=== PATIENT | female | born 1985 | race Caucasian/White ===

== ENCOUNTER 2023-04-29 17:16 | Emergency (ER) | payer BC, SELFPAY ==
--- NOTE | ~2023-04-29 | CT_ITS ---
EXAMINATION: CT abdomen pelvis w con DATE: 04/29/2023 20:59 INDICATION: RUQ pain TECHNIQUE: Computed tomography (CT) of the abdomen and pelvis was performed with 100 mL Omnipaque-350 intravenous contrast. Automated exposure control and iterative reconstruction technique were employe d. The dose-length product was 741.72 mGy-cm. COMPARISON: None. FINDINGS: Lower thorax: Unremarkable Liver: Subcentimeter hypodensities, likely small cysts or hemangiomas. Enlarged. Biliary/Gallbladder: The gallbladder is partially contracted No bile duct dilation. Pancreas: No mass or duct dilation. Spleen: Normal. Adrenals:No mass. Kidneys: No suspicious mass, obstructing stone, or hydronephrosis. GI tract: No small or large bowel dilation. Normal appendix. Mesentery/Peritoneum: No ascites, mass, or free air. Retroperitoneum: No mass. Pelvis: Pelvic organs are within normal limits. Soft Tissues: Soft tissues and body wall unremarkable. Bones: No acute osseous finding. IMPRESSION: No acute abdominopelvic process detected. Reviewed, dictated and finalized at location K. ERIN OPERATOR
[2023-04-29 17:32] VITALS: BP 136/108; PULSE 98; RESP 18; TEMP 36.1; O2SAT 100
--- NOTE | 2023-04-29 19:00 | ED.ABDPAIN ---
HPI - Abdominal Pain General Chief Complaint: Abdominal Pain Stated Complaint: Gallbladder issues Time Seen by Provider: 04/29/23 18:52 Source: patient Mode of arrival: ambulatory Limitations: no limitations History of Present Illness HPI narrative: This is a 37 year old female that presents to the ER for epigastric pain today. Reports she had eaten boneless wings and tater tots. Reports associated nausea and diarrhea. She took tums with some relief. Reports she is concerned she has been having issues with her gallbladder. She has had similar episodes over the last couple of years. Reports worsening recently. She has not been evaluated for this yet. Denies fevers or vomiting. Related Data Allergies Allergy/AdvReac Type Severity Reaction Status Date / Time naproxen Allergy Anaphylaxis Verified 04/29/23 17:17 Review of Systems Review of Systems: CONSTITUTIONAL: Denies fever GASTROINTESTINAL: Reports abdominal pain, nausea, and diarrhea. GENITOURINARY: Denies dysuria All systems reviewed & are unremarkable except as noted in HPI and below PMFSH Past Medical History Medical History (Updated 04/29/23 @ 21:44 by Kendra Nieves PA-C) No active medical problems Social History Social History (Updated 04/29/23 @ 19:06 by Kendra Nieves PA-C) Alcohol intake: current Exam Narrative: GENERAL: Well-appearing, well-nourished, and in no acute distress. HEAD: Normocephalic, atraumatic. EYES: EOMI. CHEST: Clear to auscultation. No respiratory distress. No wheezes rales or rhonchi HEART: Regular rate and rhythm. No murmur heard. Normal peripheral pulses. ABDOMEN: Soft, nondistended, normal active bowel sounds. Mild tenderness to palpation in the RUQ, without guarding EXTREMITIES: Normal range of motion. No edema. SKIN: Warm, dry, no rash. NEURO: No focal deficits. Alert and oriented x3. PSYCH: Normal mood and affect Course Course Emergency Course: Patient updated on workup and agrees with plan of care Vital Signs Vital signs: Vital Signs Temperature 97.0 F L 04/29/23 17:32 Pulse Rate 98 04/29/23 17:32 Respiratory Rate 18 04/29/23 17:32 Blood Pressure 136/108 H 04/29/23 17:32 Pulse Oximetry 100 04/29/23 17:32 Oxygen Delivery Room Air 04/29/23 17:32 Temperature 97.0 F L 04/29/23 17:32 Pulse Rate 100 04/29/23 19:49 Respiratory Rate 14 04/29/23 19:49 Blood Pressure 113/98 H 04/29/23 19:49 Pulse Oximetry 100 04/29/23 19:49 Oxygen Delivery Room Air 04/29/23 17:32 MDM - Abdominal Pain MDM Narrative Medical decision making narrative: Patient presents to the emergency department for epigastric pain and nausea. Reports history of previous similar episodes. Was concerned about her gallbladder. She is afebrile and nontoxic appearing. Her vitals are stable. CBC with mild leukocytosis to 11.3. Metabolic panel and lipase without concerning findings. UA without evidence of infection. test is negative. CT abdomen and pelvis without acute findings. COVID test positive, patient did report she was positive two weeks ago likely residual. Patient updated on her workup. Reports improvement after Pepcid. She is to follow up with PCP. She was given warnings to return to the ER Differential Diagnosis Differential diagnosis: Likely gastroenteritis, pancreatitis and other (GERD, biliary colic) Lab Data Attestation: I reviewed the patient's lab results. 04/29/23 19:28 04/29/23 19:28 Labs: Lab Results 04/29/23 04/29/23 Range/Units 19:28 19:32 WBC 11.3 H (4.5-10.0) K/mm3 RBC 4.84 (4.2-5.4) M/mm3 Hgb 13.1 (12.0-15.0) g/dL Hct 40.7 (37.0-47.0) % MCV 84.1 (80-100) fl MCH 27.1 (26-34) pg MCHC 32.2 (32-36) g/dl RDW 12.6 (11.5-14.5) % Plt Count 352 (150-375) k/mm3 MPV 11.0 H (7.4-10.4) fl Immature Gran % (Auto) 0.4 (0-0.5) % Neut % (Auto) 65.1 (45.5-73.1) % Lymph % (Auto) 25.1 (18.3-44.2)
[2023-04-29 19:36] LABS: Basophils Absolute Auto 0.1 K/mm3 (0.0-0.1); Basophils Percent Auto 0.7 % (0.2-1.2); Eosinophils Absolute Auto 0.3 K/mm3 (0-0.3); Hematocrit 40.7 % (37.0-47.0); Hemoglobin 13.1 g/dL (12.0-15.0); Immature Granulocyte Absolute 0.04 K/mm3 (0.00-0.031); Immature Granulocyte Percent A 0.4 % (0-0.5); Lymphocytes Absolute Auto 2.83 K/mm3 (0.9-3.2); Lymphocytes Percent Auto 25.1 % (18.3-44.2); Mean Corpuscular HGB Conc 32.2 g/dl (32-36); Mean Corpuscular Hemoglobin 27.1 pg (26-34); Mean Corpuscular Volume 84.1 fl (80-100); Monocytes Absolute Auto 0.6 K/mm3 (0.1-0.6); Monocytes Percent Auto 5.7 % (2.6-8.5); Neutrophils Absolute Auto 7.3 K/mm3 (1.3-6.7); Neutrophils Percent Auto 65.1 % (45.5-73.1); Platelet Count Result 352 k/mm3 (150-375); Red Blood Count 4.84 M/mm3 (4.2-5.4); Red Cell Distribution Width 12.6 % (11.5-14.5); White Blood Count 11.3 K/mm3 (4.5-10.0)
[2023-04-29 19:42] LABS: Appearance Urine Turbid (Clear); Bacteria Urine None Seen /hpf; Bilirubin Urine Negative (Negative); Blood Urine Negative (Negative); Color Urine Yellow (Yellow); Glucose Urine UA Negative (Negative); Ketones Urine Negative (Negative); Leukocyte Esterase Ur Trace LEU/UL (Negative); Nitrate Urine Negative (Negative); Non Pathogenic Casts 0-2; Protein Urine Negative (Negative); Specific Grav Ur 1.019 (1.001-1.035); Squamous Epithelial Cell Urine Occasional /hpf (Few); Urobilinogen Urine 0.2 mg/dL (<2.0); WBC Urine 0-5 /hpf
[2023-04-29 19:45] LABS: Add Urine Microscopic? YES
[2023-04-29 19:49] VITALS: BP 113/98; PULSE 100; RESP 14; O2SAT 100
[2023-04-29 19:50] LABS: Alanine Aminotransferase 19 U/L (6-35); Albumin Level 4.4 g/dL (3.5-5.1); Alkaline Phosphatase 82 U/L (38-126); Anion Gap 5 mmol/L (8-16); Aspartate Amino Transferase 25 U/L (14-36); Bilirubin,Total 0.4 mg/dL (0.2-1.3); Blood Urea Nitrogen 11 mg/dL (7-17); Calcium 9.7 mg/dL (8.4-10.2); Carbon Dioxide 31 mmol/L (22-30); Chloride 102 mmol/L (98-107); Estimated Glomerular Filt Rate > 60; Glucose 103 mg/dL (65-110); Lipase 108 U/L (23-300); Potassium 3.8 mmol/L (3.4-5.0); Sodium 138 mmol/L (137-145)
[2023-04-29 20:22] LABS: Influenza A QL RT-PCR Negative (Negative); Influenza B QL RT-PCR Negative (Negative); SARS-CoV-2 RNA PCR Positive (Negative)
[2023-04-29 20:30] VITALS: BP 120/87; PULSE 88; RESP 14; O2SAT 100
[2023-04-29 20:42] LABS: Pregnancy On Board Control Positive; Urine Pregnancy Test Negative
== END 2023-04-29 21:50 | disposition home or self-care (01) ==
PROVIDERS: Emergency Provider Physician Assistant; PCP Physician Assistant
DX: R10.11 Right upper quadrant pain (principal); U07.1 COVID-19
CPT/HCPCS: 36415; 74177; 80053; 81001; 81025; 83690; 85025; 87636; 99284; Q9967

== ENCOUNTER 2024-11-27 16:04 | Emergency (ER) | payer OTHER, BC, SELFPAY ==
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
--- OUTSIDE RECORDS SUMMARY | 2024-11-27 16:06 | XMS_ITS | Encounter Summary ---
Author Organization [facility] Healthcare Address [address] [place] [address] Care Team Providers Care Windsurfing Instructor Name Role Phone Mailereji Darlene VUONG Primary Care Pr ovider Encounter Details Date Type Department Care Team (Late st Contact Info) Description 11/20/2024 Results Follow-Up [facility] [address] [address] Hugo Love MD [address] [address] Pap and HPV, reflex to HPV Genotypes Social History Tobacco Use Types Packs/Day Years Used Date Smoking Tobacco: Never Smokeless Tobacco: Never AUDIT-C Answer Date Recorded Q1: How often do you have a drink containing alc ohol? Never 06/23/2022 Average Number of Drinks Not on file 023 Frequency of Binge Drinking Not on file 06/01 Overall Financial Resource Strain (CARDIA) Answe r Date Recorded How hard is it for you to pa y for the very basics like food, housing, medical care, and heating? Not hard at all 06/23/2022 PHQ-2 Answer Date Recorded PHQ-2 Total Score (If total score is 3 or more points, staff should administer the PHQ-9) 0 06/23/2022 [facility] [place] of Occupat ional Health - Occupational Stress Questionnaire Answer Date Recorded Do you feel stress - tense, restless, nervous, or anxious, or unable to sleep at night because your mind is troubled all the time - these days? Not at all 06/23/2022 Hunger Vital Sign Answer Date Recorded Within the past 12 months, y ou worried that your food would run out before you got the money to buy more. Never true 06/23/19 23 Within the past 12 months, t he food you bought just didn't last and you didn't have money to get more. Never true 06/23/2022 PRAPARE - Transportation Answer Date Re corded In the past 12 months, has l ack of transportation kept you from medical appointments or from getting medications? No 06/01 In the past 12 months, has l ack of transportation kept you from meetings, work, or from getting things needed for daily living? No 06/23/2022 Housing Stability Vital Sign Answer Benji e Recorded In the last 12 months, was t here a time when you were not able to pay the mortgage or rent on time? No 06/23/2022 Number of Places Lived in the Last Year Not on f ile 06/23/2022 In the last 12 months, was t here a time when you did not have a steady place to sleep or slept in a assisted (including now)? No 06/23/2022 [place] Depression Scale Answer Date Recorded [place] Depression Scale Total 3 10/10/2022 The thought of harming myself has occurred to me . Never 10/10/2022 Personal Safety Answer Date Recorded Have you ever been in or are you currently in a harmful physical or emotional relationship or is someone making you feel afraid or unsafe? Denies 03/24/2024 Comments No Sex and Gender Information Value Date Recorded Sex Assigned at Not on file Legal Sex Female 9:47 PM HI RANGER OPERATOR Gender Identity Female 01/27/2022 8:36 PM CDT Sexual Orientation Not on file documented as of this encounter Miscellaneous Notes * Result Encounter Note - Hugo Love MD - 11/20/2024 7:42 AM CDT Nelda Your Pap smear results are normal. Please message me back and let me know that she got this and that the my chart system is working. If he have any questions about the results, please call the office. Dr. Love documented in this encounter Plan of Treatment Not on file documented as of this encounter Visit Diagnoses Not on filedocumented in this encounter Care Teams Windsurfing Instructor Relationship Specialty Start Date End Date Darlene Gresham PA [address] [place] [address] PCP - General Physician Hedge Fund Accountant 08/16/23 documented as of this encounter
--- OUTSIDE RECORDS SUMMARY | 2024-11-27 16:06 | XMS_ITS | Referral Summary ---
Author Organization [facility] C Address [address] [place] [address] Care Team Providers Care Coal Cutter Name Role Phone KitaJohny membrenomorena VUONG Primary Care Pr ovider Encounters Date Type Department Care Team Description 11/20/2024 Results Follow-Up [facility] [address] [address] Hugo Love MD Pap and HPV, reflex to HPV Genotypes 11/14/2024 11:45 AM CDT Office Visit [address] [address] Hugo Love MD Routine gynecological examination (Primary Dx); Screening for cervical cancer from Last 3 Months Allergies Active Allergy Reactions Criticality Noted Date Comments Naproxen Other (See comments) Low 02/24/2023 Medications levonorgestreL (MIRENA) IUD 1 each by intrauterine route once [facility] 84933-817-26 LOT#[id number] EXPIRES 07/2025 4 032 Active Wegovy 2.4 mg/0.75 mL auto-injector ADMINISTER 2.4 MG UNDER THE SKIN 1 TIME A WEEK 5 Active hydrocortisone (ANUSOL-HC) 2.5 % rectal cream Insert into the rectum 2 (two) times a day 30 g 4 025 Discontin ued(Thera py completed ) phentermine (ADIPEX-P) 37.5 mg tablet Take 1 tablet (37.5 mg total) by mouth daily 4 025 Discontin ued(Thera py completed ) escitalopram (LEXAPRO) 5 mg tablet Take 1 tablet (5 mg total) by mouth daily 4 025 Discontin ued(Thera py completed ) Zepbound 2.5 mg/0.5 mL pen injector ADMINISTER 2.5 MG UNDER THE SKIN EVERY WEEK 4 025 Discontin ued(Thera py completed ) metoclopramide (REGLAN) 5 mg tablet Take 1 tablet (5 mg total) by mouth every 6 (six) hours as needed (nausea/vomiting ) 20 tablet 4 025 Discontin ued(Thera py completed ) Active Problems Problem Noted Date Diagnosed Date 39 weeks gestation of 09/26/2022 Depressive disorder 12/23/2018 Overview (07/17/2023): Major depressive disorder, single episode, unspecified;Practice ID: [id number] Obesity with body mass index 30 or greater 07/01 Overview (07/17/2023): Body mass index (BMI) 32.0-32.9, adult;Recorded Elsewhere: No Location: [facility] Source: EHR Chronic: N Practice ID: [id number] Billable Time: 09:30:00 AM Atypical glandular cells on cervical Pap smear 0 12/01/2014 Overview (07/17/2023): Abnormal glandular Papanicolaou smear of cervix;Recorded Elsewhere: No Location: [facility] Source: EHR Chronic: N Practice ID: [id number] Billable Time: 11:30:00 AM Ill-defined intestinal infection 01/28/2013 Cervical intraepithelial neoplasia grade 1 11/26 Overview (07/17/2023): Mild dysplasia of cervix;Recorded Elsewhere: No Location: [facility] Source: EHR Chronic: N Practice ID: [id number] Billable Time: 10:00:00 AM Immunizations Immunization Administration Dates Next Due Influenza, Quadrivalent, Spl it, Preservative Free, Intramuscular 03/21/2022 Tdap 07/25/2022 Social History Tobacco Use Types Packs/Day Years Used Date Smoking Tobacco: Never Smokeless Tobacco: Never Tobacco Cessation:Counseling Given: Not Answered AUDIT-C Answer Date Recorded Q1: How often [...] staff should administer the PHQ-9) 0 06/23/2022 [facility] of Occupat ional Health - Occupational Stress [...] place to sleep or slept in a prison (including now)? No 06/23/2022 [place] Depression Scale Answer Date Recorded [place] Depression Scale Total 3 10/10/2022 The thought [...] on file Legal Sex Female 9:47 PM OIL REFINERY PROCESS TECHNICIAN Gender Identity Female 01/27/2022 8:36 PM CDT Sexual Orientation Not on file Last Filed Vital Signs Vital Sign Reading Time Taken Comments Blood Pressure 121/74 11/14/2024 11:43 AM CDT Pulse 88 03/24/2024 11:53 PM OIL REFINERY PROCESS TECHNICIAN Temperature 36.9 C (98.4 F) 03/24/2024 8:37 PM OIL REFINERY PROCESS TECHNICIAN Respiratory Rate 18 03/24/2024 11:53 PM OIL REFINERY PROCESS TECHNICIAN Oxygen Saturation 98% 03/24/2024 11:53 PM OIL REFINERY PROCESS TECHNICIAN Inhaled Oxygen Concentration - - Weight 88.9 kg (196 lb) 11/14/2024 11:43 AM CDT Height 170.2 cm (5' 7.01) 11/14/2024 11:43 AM C DT Body Mass Index 30.69 11/14/2024 11:43 AM CDT Plan of Treatment Not on file Procedures Procedure Name Priority Date/Time Associated Diagnosis Comments PAP AND HPV, REFLEX TO HPV GENOTYPES Routine 11/14/2024 12:00 PM CDT Screening for cervical cancer HEPATITIS C ANTIBODY Routine 03/21/2022 11:47 AM OIL REFINERY PROCESS TECHNICIAN Encounter for supervision of normal first in first trimester from Last 3 Months or Most Recently Relevant to Health Maintenance Results * Pap and HPV, reflex to HPV Genotypes (11/14/2024 12:00 PM CDT) Clinical indication Comment [facility] - 01 Comment:NEGATIVE FOR INTRAEP ITHELIAL LESION OR MALIGNANCY. Specimen adequacy: Comment [facility] - 01 Comment: Satisfactory for evaluation. Endocervical and/or squamous metaplastic cells (endocervical component) are present. Clinician provided ICD10 Comment [facility] 02 Comment:Z12.4 Performed by Comment [facility] - 01 Comment:Denisha Medina, Cyto logist (ASCP) . . [facility] - 01 Note: Comment [facility] 02 Comment: The Pap smear is a screening test designed to aid in the detection of premalignant and malignant conditions of the uterine cervix. It is not a diagnostic procedure and should not be used as the sole means of detecting cervical cancer. Both false-positive and false-negative reports do occur. Test methodology Comment [facility] 02 Comment: This liquid based ThinPrep(R) pap test was screened with the use of an image guided system. HPV Aptima Negative Negative [facility] 03 Comment: This nucleic acid amplification test detects fourteen high-risk HPV types (16,18,31,33,35,39,45,51,52,56,58,59,66,68) without differentiation. HPV Genotype Reflex Comment [facility] - Comment:Criteria not met, HP V Genotype not performed. Thin prep-Endocervical 11/14/2024 12:00 PM CDT 11/14/2024 Narrative [facility] - 11/19/2024 5:09 PM CDT [facility] [id number] [place] [id number] Customer Operations Specialist: Jimmy Tovar MD, Phone: [phone] Performed at: - Lab[address] [id number] Customer Operations Specialist: Lakisha Carreon MD, Phone: [phone] Performed at: 03 - Lab[address] [id number] Customer Operations Specialist: Lakisha Carreon MD, Phone: [phone] Specimen Comment: [id number] Specimen Comment: No. of containers..01 ThinPrep Vial us Hugo Love MD LAB CYTOLOGY ORDERABLES Final Result [facility] - 01 [facility] 02 [facility] 03 * Hepatitis C antibody (03/21/2022 11:47 AM OIL REFINERY PROCESS TECHNICIAN) Hep C Ab <0.1 0.0 - 0.9 s/co ratio [facility] - 01 Comment: Negative: < 0.8 Indeterminate: 0.8 - 0.9 Positive: > 0.9 HCV antibody alone does not differentiate between previous resolved infection and active infection. The CDC and current clinical guidelines recommend that a positive HCV antibody result be followed up with an HCV RNA test to support the diagnosis of acute HCV infection. [facility] Virus (HCV) RNA, Diagnosis, MICHAEL (404185) and Hepatitis C Virus (HCV) Antibody with reflex to Quantitative Real-time PCR ([id number]). Blood 03/21/2022 11:4 7 AM OIL REFINERY PROCESS TECHNICIAN 03/21/2022 Comment:KAMAR Jewell [facility] - 03/22/2022 8:17 AM OIL REFINERY PROCESS TECHNICIAN Performed at: [address] [id number] Customer Operations Specialist: Neri Demarco PhD, Phone: [phone] us Hugo Love MD LAB MICROBIOLOGY - GENERAL ORD ERABLES Final Result [facility] - from Last 3 Months or Most Recently Relevant to Health Maintenance Insurance [facility] CHOICE OOS ANTHEM ACCESS BLUE ACC CHOICE OOS Advance Directives For more information, please contact: [phone] * Full Code (Latest Code Status on File) Date Activated Date Inactivated Comments 09/27/2022 3:34 PM 09/29/2022 2:32 PM * Full Code Date Activated Date Inactivated Comments 09/26/2022 6:57 PM 09/27/2022 3:34 PM Full CPR in case of cardiopulmonary arrest Care Teams Coal Cutter Relationship Specialty Start Date End Date Darlene Gresham PA [address] [place] [address] PCP - General Physician Preparer Making Department 08/16/23
--- OUTSIDE RECORDS SUMMARY | 2024-11-27 16:06 | XMS_ITS | Clinical Summary ---
Author Organization [facility] C Address [address] [facility] [place] [address] Care Team Providers Care Medical Billing Supervisor Name Role Phone Darlene Gresham Primary Care Pr ovider Allergies Active Allergy Reactions Criticality Noted Date Comments Naproxen Other (See comments) Low 02/24/2023 Medications levonorgestreL (MIRENA) IUD 1 each by intrauterine route once [facility][NOTE 2] 81759-567-91 LOT#[id number] EXPIRES 07/2025 4 032 Active Wegovy 2.4 [...] index (BMI) 32.0-32.9, adult;Recorded Elsewhere: No Location: [facility] Source: EHR Chronic: N Practice ID: [id number] Billable Time: 09:30:00 AM Atypical glandular cells on cervical Pap smear 0 12/01/2014 Overview (07/17/2023): Abnormal glandular Papanicolaou smear of cervix;Recorded Elsewhere: No Location: [facility] Source: EHR Chronic: N Practice ID: [id number] Billable Time: 11:30:00 AM Ill-defined intestinal infection 01/28/2013 Cervical intraepithelial neoplasia grade 1 11/26 Overview (07/17/2023): Mild dysplasia of cervix;Recorded Elsewhere: No Location: [facility] Source: EHR Chronic: N Practice ID: [id number] Billable Time: 10:00:00 AM Encounters Date Type Department Care Team Description 11/20/2024 Results Follow-Up [address] [address] Hugo Love MD Pap and HPV, reflex to HPV Genotypes 11/14/2024 11:45 AM CDT Office Visit [address] [phone] Hugo Love MD Routine gynecological examination (Primary Dx); Screening for cervical cancer from Last 3 Months Immunizations Immunization Administration Dates Next Due Influenza, Quadrivalent, Spl it, Preservative Free, Intramuscular 03/21/2022 Tdap 07/25/2022 Surgical History Surgery Date Site/Laterality Comments ARM SURGERY 04/30/1998 - 04/29/1999 CERVICAL BIOPSY W/ LOOP ELEC TRODE EXCISION Medical History Medical History Date Comments Anxiety Depression Abnormal Pap smear of cervix Social History Tobacco Use Types Packs/Day Years [...] staff should administer the PHQ-9) 0 06/23/2022 [facility] [place] of Occupat ional Health - Occupational Stress [...] place to sleep or slept in a long-term (including now)? 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 Gender Identity Female 01/27/2022 8:36 PM CDT Sexual Orientation Not on file Obstetrics History Para Term AB IAB SAB Ectopic Multiple Livin g Live Births 1 1 1 0 0 0 1 1 Date Outcome GA Total Labor Labor/2nd/3rd Weight Sex Type Anes PTL Mimi A1 A5 Name Clin 2022 Term 39w 1d 1h 06m 1h 03m/0h 03m 3.485 kg (7 lb 10.9 oz) F Vagina l Epidur al N Livin g 8 9 DAINA MERCADO Mark J., MD Delivery Location:This [facility] ([facility]) Last Filed Vital Signs Vital Sign Reading Time Taken Comments Blood Pressure 121/74 11/14/2024 11:43 AM CDT Pulse 88 03/24/2024 11:53 PM FIELD HORTICULTURAL SPECIALTY GROWER Temperature 36.9 C (98.4 F) 03/24/2024 8:37 PM FIELD HORTICULTURAL SPECIALTY GROWER Respiratory Rate 18 03/24/2024 11:53 PM FIELD HORTICULTURAL SPECIALTY GROWER Oxygen Saturation 98% 03/24/2024 11:53 PM FIELD HORTICULTURAL SPECIALTY GROWER Inhaled Oxygen Concentration - - Weight 88.9 kg (196 lb) 11/14/2024 11:43 AM CDT Height 170.2 cm (5' 7.01) 11/14/2024 11:43 AM C DT Body Mass Index 30.69 11/14/2024 11:43 AM CDT Plan of Treatment Health Maintenance Due Date Last Done Comments Varicella Vaccines (1 of 2 - 13+ 2-dose series) 07/17/1999 Hepatitis B Screening 2004 HPV Vaccines (1 - 3-dose SCD M series) 2013 Depression Screening 10/11/2023 10/10/2022, 06/23/2022, 06/23/2022 Covid-19 Vaccine (3 - 2023-2 5 season) 2023 03/27/2021, 11/06/2020 Influenza Vaccine (#1) 2024 03/21/2022 Cervical Cancer Screening 11/14/20252024, 11/12/2023, 10/25/2022 Regular Well Visit/Exam 18-64 11/14/2025, 11/12/2023 DTaP/Tdap/Td Vaccine (3 - Td or Tdap) 07/25/2032 07/25/2022, 05/14/2012 Hepatitis C Screening Completed 03/21/2022 Pneumococcal vaccine <65 Aged Out No longer eligible based on patient's age to complete this topic Procedures Procedure Name Priority Date/Time Associated Diagnosis Comments PAP AND HPV, REFLEX TO HPV GENOTYPES Routine 11/14/2024 12:00 PM CDT Screening for cervical cancer HEPATITIS C ANTIBODY Routine 03/21/2022 11:47 AM FIELD HORTICULTURAL SPECIALTY GROWER Encounter for supervision of normal first in [...] differentiation. HPV Genotype Reflex Comment [facility] - 01 Comment:Criteria not met, HP V Genotype not performed. Thin prep-Endocervical 11/14/2024 12:00 PM CDT 11/14/2024 Narrative [facility] - 11/19/2024 5:09 PM CDT [facility] [address] [place] [id number] Bill Adjuster: Jimmy Tovar MD, Phone: [phone] Performed at: - Lab[address] [id number] Bill Adjuster: Lakisha Carreon MD, Phone: [phone] Performed at: 03 - Lab[address] [id number] Bill Adjuster: Lakisha Carreon MD, Phone: [phone] Specimen Comment: [id number] Specimen Comment: No. of containers..01 ThinPrep Vial Hugo Love MD LAB CYTOLOGY ORDERABLES Final Result [facility] - 01 [facility] 02 [facility] 03 * Hepatitis C antibody (03/21/2022 11:47 AM FIELD HORTICULTURAL SPECIALTY GROWER) Hep C Ab <0.1 0.0 - 0.9 s/co ratio [facility] - Comment: Negative: < 0.8 Indeterminate: 0.8 - 0.9 Positive: > 0.9 HCV antibody alone does not differentiate between previous resolved infection and active infection. The CDC and current clinical guidelines recommend that a positive HCV antibody result be followed up with an HCV RNA test to support the diagnosis of acute HCV infection. [facility] Hepatitis C Virus (HCV) RNA, Diagnosis, MICHAEL ([id number]) and Hepatitis C Virus (HCV) Antibody with reflex to Quantitative Real-time PCR ([id number]). Blood 03/21/2022 11:4 7 AM FIELD HORTICULTURAL SPECIALTY GROWER 03/21/2022 Comment:KAMAR Narrative [facility] - 03/22/2022 8:17 AM FIELD HORTICULTURAL SPECIALTY GROWER Performed at: - Lab[address] [id number] Bill Adjuster: Neri Demarco PhD, Phone: [phone] us Hugo Love MD LAB MICROBIOLOGY - GENERAL ORD ERABLES Final Result [facility] - from Last 3 Months or Most Recently Relevant to Health Maintenance Insurance BLUE [employer] CHOICE OOS ANTH ACCESS BLUE ACC CHOICE OOS Advance Directives For more information, please contact: [phone] * Full Code (Latest Code Status on File) Date Activated Date Inactivated Comments 09/27/2022 3:34 PM 09/29/2022 2:32 PM * Full Code Date Activated Date Inactivated Comments 09/26/2022 6:57 PM 09/27/2022 3:34 PM Full CPR in case of cardiopulmonary arrest Care Teams Medical Billing Supervisor Relationship Specialty Start Date End Date Darlene Gresham PA [address] [place] [address] PCP - General Physician Assembler Fluorescent Lights 08/16/23
[2024-11-27 16:15] VITALS: BP 148/99; PULSE 95; RESP 16; TEMP 36.6; O2SAT 100
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
--- OUTSIDE RECORDS SUMMARY | 2024-11-27 17:44 | XMS_ITS | Clinical Summary ---
Author Organization [facility] C Address [address] [place] [address] Care Team Providers Care Supervisor Paper Products Name Role Phone Darlene Gresham Primary Care Pr ovider Allergies Active Allergy Reactions Criticality Noted Date Comments Naproxen Other (See comments) Low 02/24/2023 Medications levonorgestreL (MIRENA) IUD 1 each by intrauterine route once [facility] 91741-814-93 LOT#[id number] EXPIRES 07/2025 4 032 Active Wegovy 2.4 [...] index (BMI) 32.0-32.9, adult;Recorded Elsewhere: No Location: [facility] Source: EHR Chronic: N Practice ID: [id number] Billable Time: 09:30:00 AM Atypical glandular cells on cervical Pap smear 0 12/01/2014 Overview (07/17/2023): Abnormal glandular Papanicolaou smear of cervix;Recorded Elsewhere: No Location: [facility] Source: EHR Chronic: N Practice ID: [id number] Billable Time: 11:30:00 AM Ill-defined intestinal infection 01/28/2013 Cervical intraepithelial neoplasia grade 1 11/26 Overview (07/17/2023): Mild dysplasia of cervix;Recorded Elsewhere: No Location: [facility] Source: EHR Chronic: N Practice ID: [id number] Billable Time: 10:00:00 AM Encounters Date Type Department Care Team Description 11/20/2024 Results Follow-Up [address] [address] Hugo Love MD Pap and HPV, reflex to HPV Genotypes 11/14/2024 11:45 AM CDT Office Visit [address] [id number] Hugo Love MD Routine gynecological examination (Primary [...] staff should administer the PHQ-9) 0 06/23/2022 [facility] [place] of Occupat ional Health - Occupational Stress [...] place to sleep or slept in a half-way (including now)? No 06/23/2022 [place] Depression Scale Answer Date Recorded [place] Depression Scale Total 3 10/10/2022 The thought [...] on file Legal Sex Female 9:47 PM TOOL PROFILING MACHINE SET UP OPERATOR Gender Identity Female 01/27/2022 8:36 PM [...] DAINA MERCADO Mark J., MD Delivery Location:This [facility] ([employer] [facility]) Last Filed Vital Signs Vital Sign Reading Time Taken Comments Blood Pressure 121/74 11/14/2024 11:43 AM CDT Pulse 88 03/24/2024 11:53 PM TOOL PROFILING MACHINE SET UP OPERATOR Temperature 36.9 C (98.4 F) 03/24/2024 8:37 PM TOOL PROFILING MACHINE SET UP OPERATOR Respiratory Rate 18 03/24/2024 11:53 PM TOOL PROFILING MACHINE SET UP OPERATOR Oxygen Saturation 98% 03/24/2024 11:53 PM TOOL PROFILING MACHINE SET UP OPERATOR Inhaled Oxygen Concentration - - Weight 88.9 [...] HEPATITIS C ANTIBODY Routine 03/21/2022 11:47 AM TOOL PROFILING MACHINE SET UP OPERATOR Encounter for supervision of normal first in [...] 11/19/2024 5:09 PM CDT Performed at: - [facility] [address] [place] [id number] Training Program Assistant: Jimmy Tovar MD, Phone: [phone] Performed at: - Lab[address] [id number] Training Program Assistant: Lakisha Carreon MD, Phone: [phone] Performed at: 03 - Lab[address] [id number] Training Program Assistant: Lakisha Carreon MD, Phone: [phone] Specimen Comment: [id number] Specimen Comment: No. of containers..01 ThinPrep Vial Hugo Love MD LAB CYTOLOGY ORDERABLES Final Result [facility] - 01 LAB NAVIN 02 LAB NAVIN 03 * Hepatitis C antibody (03/21/2022 11:47 AM TOOL PROFILING MACHINE SET UP OPERATOR) Hep C Ab <0.1 0.0 - 0.9 [...] support the diagnosis of acute HCV infection. [facility] Hepatitis C Virus (HCV) RNA, Diagnosis, MICHAEL ([id number]) and Hepatitis C Virus (HCV) Antibody with reflex to Quantitative Real-time PCR ([id number]). Blood 03/21/2022 11:4 7 AM TOOL PROFILING MACHINE SET UP OPERATOR 03/21/2022 Comment:KAMAR Narrative [facility] - 03/22/2022 8:17 AM TOOL PROFILING MACHINE SET UP OPERATOR Performed at: - Lab[address] [id number] Training Program Assistant: Neri Demarco PhD, Phone: [phone] us Hugo Love MD LAB MICROBIOLOGY - GENERAL ORD ERABLES Final Result [facility] - from Last 3 Months or Most Recently Relevant to Health Maintenance Insurance BLUE RAP Index CHOICE OOS ANTH ACCESS BLUE ACC CHOICE OOS Advance Directives For more information, please contact: [phone] * Full Code (Latest Code Status on File) Date Activated Date Inactivated Comments 09/27/2022 3:34 PM 09/29/2022 2:32 PM * Full Code Date Activated Date Inactivated Comments 09/26/2022 6:57 PM 09/27/2022 3:34 PM Full CPR in case of cardiopulmonary arrest Care Teams Supervisor Paper Products Relationship Specialty Start Date End Date Darlene Gresham PA [address] [place] [address] PCP - General Physician Traffic Safety Administrator 08/16/23
--- OUTSIDE RECORDS SUMMARY | 2024-11-27 17:44 | XMS_ITS | Referral Summary ---
Author Organization [facility] C Address [address] [place] [address] Care Team Providers Care Wireless Sales Manager Name Role Phone KitaJohny membrenomorena VUONG Primary Care Pr ovider Encounters Date Type Department Care Team Description 11/20/2024 Results Follow-Up [facility] [address] [phone] Hugo Love MD Pap and HPV, reflex to HPV Genotypes 11/14/2024 11:45 AM CDT Office Visit [address] [address] Hugo Love MD Routine gynecological examination (Primary Dx); Screening for cervical cancer from Last 3 Months Allergies Active Allergy Reactions Criticality Noted Date Comments Naproxen Other (See comments) Low 02/24/2023 Medications levonorgestreL (MIRENA) IUD 1 each by intrauterine route once [facility] [address]689-452-32 LOT#[id number] EXPIRES 07/2025 4 032 Active Wegovy 2.4 [...] index (BMI) 32.0-32.9, adult;Recorded Elsewhere: No Location: [facility] Source: EHR Chronic: N Practice ID: [id number] Billable Time: 09:30:00 AM Atypical glandular cells on cervical Pap smear 0 12/01/2014 Overview (07/17/2023): Abnormal glandular Papanicolaou smear of cervix;Recorded Elsewhere: No Location: [facility] Source: EHR Chronic: N Practice ID: [id number] Billable Time: 11:30:00 AM Ill-defined intestinal infection 01/28/2013 Cervical intraepithelial neoplasia grade 1 11/26 Overview (07/17/2023): Mild dysplasia of cervix;Recorded Elsewhere: No Location: [facility] Source: EHR Chronic: N Practice ID: [id number] [...] staff should administer the PHQ-9) 0 06/23/2022 [facility] of Occupat ional Health - Occupational [...] in a prison (including now)? No 06/23/2022 [place] Depression Scale Answer Date Recorded [place] Depression Scale Total 3 10/10/2022 The thought [...] on file Legal Sex Female 9:47 PM TRANSLATION DIRECTOR Gender Identity Female 01/27/2022 8:36 PM CDT Sexual Orientation Not on file Last Filed Vital Signs Vital Sign Reading Time Taken Comments Blood Pressure 121/74 11/14/2024 11:43 AM CDT Pulse 88 03/24/2024 11:53 PM TRANSLATION DIRECTOR Temperature 36.9 C (98.4 F) 03/24/2024 8:37 PM TRANSLATION DIRECTOR Respiratory Rate 18 03/24/2024 11:53 PM TRANSLATION DIRECTOR Oxygen Saturation 98% 03/24/2024 11:53 PM TRANSLATION DIRECTOR Inhaled Oxygen Concentration - - Weight 88.9 [...] HEPATITIS C ANTIBODY Routine 03/21/2022 11:47 AM TRANSLATION DIRECTOR Encounter for supervision of normal first in [...] 11/19/2024 5:09 PM CDT [facility]formed [facility]: [facility] [address] [place] [id number] Agricultural Equipment Mechanic: Jimmy Tovar MD, Phone: [phone] Performed at: - Lab[address] [id number] Agricultural Equipment Mechanic: Lakisha Carreon MD, Phone: [phone] Performed at: 03 - Lab[address] [id number] Agricultural Equipment Mechanic: Lakisha Carreon MD, Phone: [phone] Specimen Comment: [id number] Specimen Comment: No. of containers..01 ThinPrep Vial us Hugo Love MD LAB CYTOLOGY ORDERABLES Final Result [facility] - 01 LAB NAVIN 02 LAB NAVIN 03 * Hepatitis C antibody (03/21/2022 11:47 AM TRANSLATION DIRECTOR) Hep C Ab <0.1 0.0 - 0.9 [...] support the diagnosis of acute HCV infection. [facility] Hep[facility] C Virus (HCV) RNA, Diagnosis, MICHAEL ([id number]) and Hepatitis C Virus (HCV) Antibody with reflex to Quantitative Real-time PCR ([id number]). Blood 03/21/2022 11:4 7 AM TRANSLATION DIRECTOR 03/21/2022 Comment:KAMAR Jewell [facility] - 03/22/2022 8:17 AM TRANSLATION DIRECTOR Performed at: [address] [id number] Agricultural Equipment Mechanic: Neri Demarco PhD, Phone: [phone] us Hugo Love MD LAB MICROBIOLOGY - GENERAL ORD ERABLES Final Result [facility] - from Last 3 Months or Most Recently Relevant to Health Maintenance Insurance [facility] CHOICE OOS ANTHEM ACCESS BLUE ACC CHOICE OOS Advance Directives For more information, please contact: [phone] * Full Code (Latest Code Status on File) Date Activated Date Inactivated Comments 09/27/2022 3:34 PM 09/29/2022 2:32 PM * Full Code Date Activated Date Inactivated Comments 09/26/2022 6:57 PM 09/27/2022 3:34 PM Full CPR in case of cardiopulmonary arrest Care Teams Wireless Sales Manager Relationship Specialty Start Date End Date Darlene Gresham PA [address] [place] [address] PCP - General Physician Manager Research Development 08/16/23
--- OUTSIDE RECORDS SUMMARY | 2024-11-27 17:45 | XMS_ITS | Encounter Summary ---
Author Organization [facility] Healthcare Address [address] [place] [address] Care Team Providers Care Flat Optical Element Maker Name Role Phone Mailereji Darlene VUONG Primary Care Pr ovider Encounter Details Date Type Department Care Team (Late st Contact Info) Description 11/20/2024 Results Follow-Up [facility] [address] [address] Hugo Love MD [address] [address] Pap and HPV, reflex to [...] staff should administer the PHQ-9) 0 06/23/2022 [facility] [place] of Occupat ional Health - Occupational Stress [...] in a long-term (including now)? No 06/23/2022 [place] Depression Scale Answer Date Recorded [place] Depression Scale Total 3 10/10/2022 The thought [...] on file Legal Sex Female 9:47 PM AGRONOMY MANAGER Gender Identity Female 01/27/2022 8:36 PM CDT [...] on filedocumented in this encounter Care Teams Flat Optical Element Maker Relationship Specialty Start Date End Date Darlene Gresham PA [address] [place] [address] PCP - General Physician Mail Processor 08/16/23 documented as of this encounter
--- NOTE | 2024-11-27 18:04 | PC.NURSE ---
Antibaterial placed on wrist, then non-adherent dressing, gauze and coban. Patient given three days worth of dressing supplies.
== END 2024-11-27 18:06 | disposition home or self-care (01) ==
LOC: ANHED 17:43
PROVIDERS: Emergency Provider Emergency Medicine; PCP Physician Assistant
DX: S06.0X0A Concussion without loss of consciousness, initial encounter (principal); S13.4XXA Sprain of ligaments of cervical spine, initial encounter; S61.412A Laceration without foreign body of left hand, initial encounter; W20.8XXA Other cause of strike by thrown, projected or falling object, initial encounter
CPT/HCPCS: 70450; 72125; 73130; 99284